=== PATIENT | male | born 1975 | race African-American/Black ===

== ENCOUNTER 2024-11-24 11:36 | Outpatient (CLI) | payer OTHER, SELFPAY ==
--- NOTE | ~2024-11-24 | MR_ITS ---
EXAMINATION: MR abdomen wo/w con, MR pelvis wo/w con DATE: 11/24/2024 12:59 INDICATION: Complex anal fistula TECHNIQUE: 1. Magnetic resonance imaging (MRI) of the abdomen was performed without and with 20 mL Multihance in travenous contrast. Sequences included coronal T2-weighted SS-FSE, coronal and axial FS 2D-FIESTA, a xial STIR FSE, axial T2-weighted SS-FSE, axial T2-weighted FS SS-FSE, axial diffusion-weighted SE, ax ial dual-echo T1-weighted FSPGR, and axial and coronal T1-weighted LAVA. Postcontrast axial and coron al T1-weighted LAVA images were obtained. 2. MRI of the pelvis was performed without and with the same 20 mm MultiHance intravenous contrast real barak. Fullfield sequences of the pelvis included axial and coronal T2-weighted SS FSE, coronal 2D FIES TA, axial T1-weighted FSPGR, axial dual-echo T1-weighted FSPGR and axial T1 weighted LAVA. Small fie ld of view sequences included axial, sagittal and coronal T2-weighted FSE centered on the anus and di stal rectum. Postcontrast sequences included a time course axial T1-weighted LAVA with full-field of view of the pelvis. COMPARISON: None. FINDINGS: Abdomen: Heart size is normal. No pericardial or pleural effusion. Liver, gallbladder, spleen, pancreas, right kidney and bilateral adrenal glands are normal. 6 mm nonenhancing left renal cyst. Bowels including the appendix are normal. No pathologically enlarged abdominal lymphadenopathy. Spine is unremarkable with normal marrow signal throughout. Pelvis: Bladder and prostate are normal. No pathologically enlarged pelvic or inguinal lymphadenopathy. No fr ee fluid in the pelvis. Bones are unremarkable with normal marrow signal throughout. There is a right -sided perianal fistula with subcutaneous abscess. The abscess. The abscess has a ringlike configurat ion when viewed on the sagittal plane measuring approximately subcentimeter craniocaudally and AP and measuring approximately 2 cm in maximal medial to lateral with. There are 3 separate fistulous commu nications to the skin surface from anteroinferior to posterior inferior the posterior inferior to the anal verge. The abscess measures approximately The anal fistula appears interesting. With the anal w all defect occurring at the 10:00 position when viewed from cephalad to caudal with anterior at the 1 2:00 position. This is best appreciated on the small [id number] oblique axial series 24, image 10. The fistulous tract measures approximately 4 cm between the inguinal defect in the cephalad margin o f the subcutaneous abscess. The patient's known indication is best appreciated on the small field-of- view oblique coronal series 25, image 10. No evident extension cephalad/deep to the level of the exte rnal sphincter. IMPRESSION: 1. 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 Reviewed, dictated and finalized at location B. IMPRESSION: 1. 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
== END 2024-11-24 11:37 | disposition home or self-care (01) ==
LOC: MICIMG 11:37
PROVIDERS: PCP Surgery; Visit Provider Surgery
DX: K60.321 Anal fistula, complex, initial (principal); K52.9 Noninfective gastroenteritis and colitis, unspecified
CPT/HCPCS: 72197; 74183; A9577